=== PATIENT | female | born 1990 | race Caucasian/White ===

== ENCOUNTER 2025-06-13 17:43 | Emergency (ER) | payer MEDICAID, SELFPAY ==
[2025-06-13 17:45] VITALS: BP 113/60; PULSE 60; RESP 20; TEMP 36.8; O2SAT 99
[2025-06-13 18:02] VITALS: BP 113/60; PULSE 60; RESP 20; TEMP 36.8; O2SAT 99
--- NOTE | 2025-06-13 18:16 | ED.GENADUL_ITS ---
Discharge Plan Disposition Patient Disposition: Home Condition: Stable Discharge Details Clinical Impression: Dental infection Primary Care Provider: None,None ED Provider: Lenore Clay Home Meds and New Rx's Prescriptions: New clindamycin HCl [Cleocin HCl] 150 mg capsule 450 mg PO Q6H 9 Days Qty: 108 0RF Probiotic 3 billion cell capsule 3,000 mmu cells PO DAILY Qty: 14 0RF Rx Instructions: administer with a meal No Action levothyroxine [Euthyrox] 200 mcg tablet 250 mcg PO DAILY Discharge Instructions Instructions: Tooth Abscess (DC) Additional Instructions: You were seen in the emergency department today for evaluation of a swelling near your jaw that is concerning for a dental infection. In our department had a full physical examination performed, and had reassuring vital signs. We are starting you on an antibiotic called clindamycin. Please take all of this medication until it is gone, even if you start to feel better. You need to take a probiotic or eat yogurt or foods with live active cultures to prevent GI upset and infection while taking this antibiotic. Please continue to use Tylenol and ibuprofen as needed for pain, and reach out to your dental provider to schedule an evaluation. A referral has been placed for primary care in our hospital system. Please follow-up with your primary care provider in the next few days to discuss this visit and any symptoms that change, worsen, or persist. Thank you for allowing us to be part of your care. Discharge Data Discharge Date/Time-TO BE ENTERED AT DEPARTURE: 06/13/25 18:33 HPI General Mode of arrival: ambulatory . Date/Time Provider Initiated Documentation: 06/13/25 17:46 . Limitations to Documentation: no limitations . Information obtained by: patient, family and old records reviewed . HPI Narrative: This is a 35-year-old female patient with a past medical history significant for hypothyroidism, recently stopped utilization of Suboxone, presenting for evaluation of dental swelling. She reports that approximately 3 days ago she noted some swelling in her right lower face/jaw region. She reports that the swelling has worsened, and she has noted discomfort that extends along the entirety of her bottom teeth bilaterally and then up into her cheeks. She reports that she has been managing the pain appropriately with Tylenol and ibuprofen but is concerned for dental infection given history of poor dental care in the past. She reports no fevers or chills, has no difficulty moving her neck or opening her mouth, has been able to maintain hydration but reports sensitivity to hot and cold as well as pain with chewing. She has an allergy reported to penicillins. Related Data Home Medications ?Medication ?Instructions ?Recorded ?Confirmed clindamycin HCl 150 mg capsule 450 mg (3 x 150 mg) PO Q6H 9 days 06/13/25 (Cleocin HCl) #108 caps lactobacillus combination no.4 3 3,000 mmu cells PO DA KATELIN #14 caps 06/13/25 billion cell capsule (Probiotic) levothyroxine 200 mcg tablet 250 mcg PO DAILY 06/13/25 06/13/25 (Euthyrox) Previous Rx's ?Medication ?Instructions ?Recorded clindamycin HCl 150 mg capsule 450 mg (3 x 150 mg) PO Q6H 9 days 06/13/25 (Cleocin HCl) #108 caps lactobacillus combination no.4 3 3,000 mmu cells PO DA KATELIN #14 caps 06/13/25 billion cell capsule (Probiotic) Allergies Allergy/AdvReac Type Severity Reaction Status Date / Time Penicillins Allergy Intermediate Other (See Verified 06/13/25 17:50 Comment) mushroom AdvReac Intermediate Other (See Verified 06/13/25 17:50 Comment) General Stated Complaint: DentalOral ELMIRA: 3 Exam Narrative Exam Narrative: Gen: Awake and alert, in no apparent distress HEENT: Non-icteric sclera, PERRL, EOMs full and without nystagmus or entrapment. The patient has poor dentition and dental carry disease. She does have a focal area approximately 1 x 1 cm of induration and swelling in the right lower cheek overlying the right lower premolars. No tenderness over the parotid gland, nor expression of purulence with palpation. The floor of the mouth is soft, she has no trismus, does have some left greater than right sided tender lymphadenopathy of the anterior cervical chain. Neck: Supple, full range of motion Lungs: No apparent respiratory distress, normal respiratory effort. CV: Appears well perfused Abdomen: Non-distended MSK: Moves 4 extremities without apparent limitation in ROM Skin: Visualized skin without rashes, cyanosis. Neuro: Normal Gait, no obvious focal deficits or facial asymmetry. Speaks in full, clear sentences. Psych: Appropriate for situation. Course Vital Signs Vital signs: Vital Signs Temperature 36.8 C 06/13/25 17:45 Pulse 60 06/13/25 17:45 Respiratory Rate 20 06/13/25 17:45 Blood Pressure 113/60 06/13/25 17:45 Pulse Oximetry 99 06/13/25 17:45 Temperature 36.8 C 06/13/25 18:02 Temperature Source Oral 06/13/25 18:02 Pulse 60 06/13/25 18:02 Respiratory Rate 20 06/13/25 18:02 Blood Pressure 113/60 06/13/25 18:02 Blood Pressure Position Sitting 06/13/25 18:02 Pulse Oximetry 99 06/13/25 18:02 Oxygen Delivery Method Room Air 06/13/25 18:02 Oxygen Flow Rate 0 06/13/25 18:02 Pain Level 10 06/13/25 18:02 Medical Decision Making This is a 35-year-old female patient presenting for evaluation of facial swelling and dental pain. I differential includes but is not limited to dental infection, though I visualize no apical abscesses that require drainage. Considered dental carry disease, cellulitis, considered suppurative parotitis though this is less consistent with the patient's history of physical examination. I note no concerning physical exam evidence suggestive of Randall's angina or deep space neck infection. The patient is hemodynamically well and without fever or tachycardia to significantly increase my concern for sepsis or bacteremia. I recommended to the patient that we initiate a course of antibiotics and provided her with a prescription for clindamycin as well as her first days worth of pills to be taken prior to getting to the pharmacy. She was provided with a list of local dental providers, and counseled to contact them tomorrow to schedule a follow-up appointment. I provided her with a referral to establish with a primary care provider. At this time, the patient has had a full medical evaluation and is safe for discharge to home. They are hemodynamically stable, ambulatory, and tolerating PO. They are understanding of the follow-up plan and return precautions. They left our facility without incident. Lenore Clay MD [facility] All Active Problems (Updated 06/13/25 @ 18:16 by Lenore Clay MD) Dental infection (Acute) Social History Smoking/Tobacco Use Status: Never Smoking risk assessment performed?: Yes Alcohol Intake: current Alcohol Intake frequency: a few times a week Details: Previous suboxone use Do you feel safe at home: Yes Do you feel safe in your relationship?: Yes PAWSS Have you Been Recently Intoxicated or Drunk Within the Last 30 days?: No Have you Ever Experienced Previous Episodes of Alcohol Withdrawal?: No Have you ever Experienced Withdrawal Seizures?: No Have you ever Experienced Delirium Tremens(DT)s?: No Have you ever undergone Alcohol Rehabilitation Treatment (i.e, inpt ot outpatient treatment programs)?: No Have you ever Experienced Blackouts?: No Have you ever Combined Alcohol with other Downers within the last 90 days?: No Have you ever Combined Alcohol with any other Substance of Abuse during the last 90 days?: No Positive Blood Alcohol level on Presentation? [PCS.BAL]: Unable to Obtain Evidence of Increased Autonomic Activity (i.e. HR>120, tremor, sweating, agitation, nausea)?: No Result: 0
[2025-06-13] MEDS: Clindamycin 150 MG CAP, 12 CAPS/BTL 450 MG PO (18:28)
== END 2025-06-13 18:33 | disposition home or self-care (01) ==
LOC: ER 18:37
PROVIDERS: Emergency Provider Emergency Medicine
DX: G40.909 Epilepsy, unspecified, not intractable, without status epilepticus (principal)
CPT/HCPCS: 99283

== ENCOUNTER 2025-06-16 11:53 | Emergency (ER) | payer MEDICAID, SELFPAY ==
[2025-06-16 12:24] VITALS: BP 113/71; PULSE 55; RESP 16; TEMP 36.8; O2SAT 98
--- NOTE | 2025-06-16 13:15 | ED.GENADUL_ITS ---
Discharge Plan Disposition Patient Disposition: Home Condition: Stable Discharge Details Clinical Impression: Seizure disorder Primary Care Provider: None,None ED Provider: Gabe Sarabia Home Meds and New Rx's Prescriptions: New lamotrigine 25 mg tablet 25 mg PO DAILY 14 Days Qty: 14 0RF Continued clindamycin HCl [Cleocin HCl] 150 mg capsule 450 mg PO Q6H 9 Days Qty: 108 0RF No Action levothyroxine [Euthyrox] 200 mcg tablet 250 mcg PO DAILY Probiotic 3 billion cell capsule 3,000 mmu cells PO DAILY Qty: 14 0RF Rx Instructions: administer with a meal Discharge Instructions Additional Instructions: The antibiotic is now associated with seizure risk. You likely have a seizure from not being on your seizure medication. I have written prescription for the first 2 weeks of the medication you are on and I placed on a follow-up list to try to get established with a primary care provider in the area. If you feel more ill or have new symptoms such as high fevers return to the emergency d epartment for reevaluation. HPI General Mode of arrival: ambulatory . Date/Time Provider Initiated Documentation: 06/16/25 12:00 . Limitations to Documentation: no limitations . Information obtained by: patient . History of Present Illness 35 year old F presents to the emergency department with the chief complaint of Had a seizure yesterday, described as moderate, Patient started experiencing this day(s) (2) and it has been now resolved. No relieving factors improve symptom(s), No exacerbating factors reported . Patient notes no other symptoms.. Patient did receive the following treatments prior to arrival, none Related Data Home Medications ?Medication ?Instructions ?Recorded ?Confirmed clindamycin HCl 150 mg capsule 450 mg (3 x 150 mg) PO Q6H 9 days 06/13/25 06/16/25 (Cleocin HCl) #108 caps lactobacillus combination no.4 3 3,000 mmu cells PO DA KATELIN #14 caps 06/13/25 06/16/25 billion cell capsule (Probiotic) levothyroxine 200 mcg tablet 250 mcg PO DAILY 06/13/25 06/16/25 (Euthyrox) lamotrigine 25 mg tablet 25 mg PO DAILY 14 days #14 t abs 06/16/25 Previous Rx's ?Medication ?Instructions ?Recorded clindamycin HCl 150 mg capsule 450 mg (3 x 150 mg) PO Q6H 9 days 06/13/25 (Cleocin HCl) #108 caps lactobacillus combination no.4 3 3,000 mmu cells PO DA KATELIN #14 caps 06/13/25 billion cell capsule (Probiotic) lamotrigine 25 mg tablet 25 mg PO DAILY 14 days #14 t abs 06/16/25 Allergies Allergy/AdvReac Type Severity Reaction Status Date / Time Penicillins Allergy Intermediate Other (See Verified 06/16/25 12:29 Comment) mushroom AdvReac Intermediate Other (See Verified 06/16/25 12:29 Comment) General Stated Complaint: Seizure ELMIRA: 3 Review of Systems All systems reviewed & are unremarkable except as noted in HPI and below Constitutional Constitutional: Denies chills, Denies fever(s) and Denies weakness Eyes Eyes: Denies loss of vision ENT Ears, Nose, Mouth, and Throat: Denies change in voice Cardiovascular Cardiovascular: Denies chest pain and Denies dyspnea Respiratory Respiratory: Denies cough and Denies dyspnea Gastrointestinal Gastrointestinal: Denies abdominal pain, Denies nausea and Denies vomiting Genitourinary Genitourinary: Denies dysuria Musculoskeletal Musculoskeletal: Denies joint swelling Integumentary/Breasts Skin/Breast: Denies rash Neurologic Neurologic: Denies loss of vision, Reports convulsions and Denies weakness Psychiatric Psychiatric: Denies depression Endocrine Endocrine: Denies cold intolerance and Denies heat intolerance Allergic/Immunologic Allergic/Immunologic: Denies urticaria Exam Const General: no acute distress Orientation: alert [facility] Head: normal to inspection Ears: external ears normal General nose exam: external nose normal Mouth: moist mucous membranes Eyes General: appearance normal, both eyes and all related structures Neck Neck: normal visual inspection Resp Effort & Inspection: normal respiratory effort and able to speak in complete sentences Cardio Rate: regular rate Skin General skin exam: no rashes or lesions noted Neuro General: patient alert and patient oriented x3 Extrem General: normal to inspection Psych Mental Status: mental status grossly normal Course Vital Signs Vital signs: Vital Signs Temperature 36.8 C 06/16/25 12:24 Pulse 55 L 06/16/25 12:24 Respiratory Rate 16 06/16/25 12:24 Blood Pressure 113/71 06/16/25 12:24 Pulse Oximetry 98 06/16/25 12:24 Temperature 36.8 C 06/16/25 12:24 Temperature Source Oral 06/16/25 12:24 Pulse 55 L 06/16/25 12:24 Respiratory Rate 16 06/16/25 12:24 Blood Pressure 113/71 06/16/25 12:24 Blood Pressure Position Supine 06/16/25 12:24 Pulse Oximetry 98 06/16/25 12:24 Oxygen Delivery Method Room Air 06/16/25 12:24 Oxygen Flow Rate 0 06/16/25 12:24 Medical Decision Making 35-year-old female states she has a seizure disorder and needs to be on antiepileptics but has not and was recently started on clindamycin for a jaw infection comes in after she had a tonic-clonic seizure yesterday. She was seen at [facility] and had labs and then eloped for records. She says she is concerned the clindamycin may have caused her seizure so she came here. She has not had any seizure today and feels well today. No fevers or chills, she is going to x 4 no distress moving all extremities well. She has no facial or jaw swelling. She has full range of motion of her mandible. She is unsure what antiepileptic she used to be on. I reviewed the records and looks that she used to be on lamotrigine. She says she was unable to keep filling it as she has moved to the area. I will provide her for short course of this until she can establish with a primary care provider in the area. She is stable for discharge, I have placed her on a referral list to see a primary [id number] return precautions given PFSH All Active Problems (Updated 06/16/25 @ 13:53 by Gabe Sarabia MD) Seizure disorder (Chronic) Dental infection (Acute) Social History Smoking/Tobacco Use Status: Never Smoking risk assessment performed?: Yes Alcohol Intake: current Alcohol Intake frequency: a few times a week Details: Previous suboxone use Do you feel safe at home: Yes Do you feel safe in your relationship?: Yes
[2025-06-16] MEDS: lamoTRIgine 25 MG TAB PO (13:43)
[2025-06-16 14:11] VITALS: BP 115/77; PULSE 50; RESP 16; O2SAT 100
== END 2025-06-16 14:11 | disposition home or self-care (01) ==
PROVIDERS: Emergency Provider Emergency Medicine
DX: G40.909 Epilepsy, unspecified, not intractable, without status epilepticus (principal)
CPT/HCPCS: 99283